=== PATIENT | female | born 1965 | race Caucasian/White ===

== ENCOUNTER 2017-11-15 20:42 | Inpatient (IN) | payer BC, MEDICAID ==
[2017-11-15] MEDS: ACETAMINOPHEN 325 MG TAB PO (21:49)
[2017-11-15] MEDS: SODIUM CHLORIDE 0.9% 1L BAG IV* (21:50)
[2017-11-15] MEDS: CEFTRIAXONE 1 GM/50 ML (PMX) 50 ML IVPB (21:50)
[2017-11-15 22:14] LABS: ADD MAN DIFF? NO
[2017-11-15 22:23] LABS: ABNORMAL IP MESSAGE 1; BASOPHILS % 0.2 % (0.0-2.0); HEMATOCRIT 30.6 % (37.0-47.0); HEMOGLOBIN 10.5 g/dl (12.0-16.0); LYMPHOCYTES # 0.2 10^3/ul (0.8-2.9); LYMPHOCYTES % 3.1 % (15.0-51.0); MEAN CORPUSCULAR HEMOGLOBIN 32.9 pg (29.0-33.0); MEAN CORPUSCULAR HGB CONC 34.3 g/dl (32.0-37.0); MEAN CORPUSCULAR VOLUME 95.9 fl (82.0-101.0); MEAN PLATELET VOLUME 8.7 fl (7.4-10.4); MONOCYTE # 0.1 10^3/ul (0.3-0.9); NEUTROPHIL # 5.6 10^3/ul (1.6-7.5); NEUTROPHILS % 95.5 % (39.0-77.0); PLATELET COUNT 147 10^3/UL (140-415); RED BLOOD COUNT 3.19 10^6/ul (4.20-5.40); RED CELL DISTRIBUTION WIDTH 12.4 % (11.5-14.5)
[2017-11-15 22:23] LABS: WHITE BLOOD COUNT 5.9 10^3/ul (4.8-10.8)
[2017-11-15 22:43] LABS: INR 1.01; PARTIAL THROMBOPLASTIN TIME 24.4 Sec (25.0-35.0); PROTIME 13.4 Sec (11.9-14.9)
[2017-11-15 22:44] LABS: ALANINE AMINOTRANSFERASE 152 IU/L (13-69); ALBUMIN 3.7 g/dl (3.3-4.9); ALBUMIN/GLOBULIN RATIO 1.42; ALKALINE PHOSPHATASE 45 IU/L (42-121); ANION GAP 14 (8-16); ASPARTATE AMINO TRANSFERASE 150 IU/L (15-46); BILIRUBIN,INDIRECT 0.7 mg/dl (0-1.1); BILIRUBIN,TOTAL 0.7 mg/dl (0.2-1.3); BLOOD UREA NITROGEN 14 mg/dl (7-20); CALCIUM 9.3 mg/dl (8.4-10.2); CARBON DIOXIDE 26 mmol/L (21-31); CHLORIDE 99 mmol/L (97-110); CREATININE 0.77 mg/dl (0.44-1.00); GLUCOSE 102 mg/dl (70-220); LIPASE 19 U/L (23-300); POTASSIUM 3.7 mmol/L (3.5-5.1); SODIUM 135 mmol/L (135-144); TOTAL PROTEIN 6.3 g/dl (6.1-8.1)
[2017-11-15 22:46] LABS: LACTIC ACID 2.2 mmol/L (0.5-2.0)
[2017-11-15 22:48] LABS: POSITIVE DIFF @See below
[2017-11-15 22:54] LABS: TROPONIN-I < 0.010 ng/ml (0.000-0.120)
[2017-11-15 23:15] LABS: ADD UMIC YES; UR ASCORBIC ACID NEGATIVE (NEGATIVE); UR BILIRUBIN (Dip) NEGATIVE (NEGATIVE); UR BLOOD (Dip) 2+ mg/dL (NEGATIVE); UR CLARITY CLEAR (CLEAR); UR COLOR STRAW (YELLOW); UR GLUCOSE (Dip) NEGATIVE (NEGATIVE); UR KETONES (Dip) NEGATIVE (NEGATIVE); UR LEUKOCYTE ESTERASE (Dip) NEGATIVE Leu/ul (NEGATIVE); UR NITRITE (Dip) NEGATIVE (NEGATIVE); UR RBC 0 /HPF (0-5); UR SPECIFIC GRAVITY (Dip) 1.012 (1.003-1.030); UR TOTAL PROTEIN (Dip) NEGATIVE (NEGATIVE); UR UROBILINOGEN (Dip) NEGATIVE (NEGATIVE); UR WBC 0 /HPF (0-5)
[2017-11-15 23:52] LABS: LACTIC ACID 1.1 mmol/L (0.5-2.0)
[2017-11-15] MEDS: HYDROCODONE/APAP (10/325) TAB PO (23:59)
[2017-11-16 03:17] LABS: ADD MAN DIFF? NO
[2017-11-16 03:20] LABS: ABNORMAL IP MESSAGE 1; HEMATOCRIT 30.7 % (37.0-47.0); HEMOGLOBIN 10.2 g/dl (12.0-16.0); LYMPHOCYTES # 0.2 10^3/ul (0.8-2.9); LYMPHOCYTES % 8.4 % (15.0-51.0); MEAN CORPUSCULAR HEMOGLOBIN 32.3 pg (29.0-33.0); MEAN CORPUSCULAR HGB CONC 33.2 g/dl (32.0-37.0); MEAN CORPUSCULAR VOLUME 97.2 fl (82.0-101.0); MEAN PLATELET VOLUME 8.7 fl (7.4-10.4); MONOCYTES % 0.4 % (0.0-11.0); NEUTROPHIL # 2.2 10^3/ul (1.6-7.5); NEUTROPHILS % 90.8 % (39.0-77.0); PLATELET COUNT 127 10^3/UL (140-415); RED BLOOD COUNT 3.16 10^6/ul (4.20-5.40); RED CELL DISTRIBUTION WIDTH 12.3 % (11.5-14.5)
[2017-11-16 03:20] LABS: WHITE BLOOD COUNT 2.4 10^3/ul (4.8-10.8)
[2017-11-16 03:41] LABS: POSITIVE DIFF @See below
[2017-11-16 03:44] LABS: LACTIC ACID 1.7 mmol/L (0.5-2.0)
[2017-11-16 03:48] LABS: ALANINE AMINOTRANSFERASE 483 IU/L (13-69); ALBUMIN 3.2 g/dl (3.3-4.9); ALBUMIN/GLOBULIN RATIO 1.28; ALKALINE PHOSPHATASE 61 IU/L (42-121); ANION GAP 11 (8-16); ASPARTATE AMINO TRANSFERASE 591 IU/L (15-46); BILIRUBIN,INDIRECT 0.5 mg/dl (0-1.1); BILIRUBIN,TOTAL 0.5 mg/dl (0.2-1.3); BLOOD UREA NITROGEN 10 mg/dl (7-20); CARBON DIOXIDE 24 mmol/L (21-31); CHLORIDE 109 mmol/L (97-110); GLUCOSE 101 mg/dl (70-220); POTASSIUM 3.6 mmol/L (3.5-5.1); SODIUM 140 mmol/L (135-144); TOTAL PROTEIN 5.7 g/dl (6.1-8.1)
[2017-11-16] MEDS: HYDROCODONE/APAP (10/325) TAB PO ×2 (08:12→14:54)
[2017-11-16] MEDS: CHOLECALCIFEROL 1,000 UNIT TAB PO (08:12)
[2017-11-16] MEDS: ONDANSETRON 4 MG INJ IV ×2 (08:12→14:54)
[2017-11-16] MEDS: CEFEPIME 1GM/50 ML (PMX) 50 ML IVPB ×2 (08:13→20:53)
[2017-11-16] MEDS: 1/2 NS + KCL 20 MEQ 1,000 ML IV ×2 (13:24)
[2017-11-16] MEDS: ATORVASTATIN 20 MG TAB PO (20:50)
[2017-11-16] MEDS ORDERED: NON-FORMULARY/PATIENT OWN MED (Simvastatin* (Zocor*) 40 MG) PO (21:00)
[2017-11-17] MEDS: ACETAMINOPHEN 500 MG TAB PO ×2 (03:07→21:05)
[2017-11-17] MEDS: 1/2 NS + KCL 20 MEQ 1,000 ML IV ×2 (04:56→18:05)
[2017-11-17] MEDS: HYDROCODONE/APAP (10/325) TAB PO (04:59)
[2017-11-17 05:18] LABS: ADD MAN DIFF? NO; HAAIG REFLEX REFLEX FILED
[2017-11-17 05:32] LABS: ABNORMAL IP MESSAGE 1; BASOPHILS % 0.5 % (0.0-2.0); EOSINOPHILS % 0.5 % (0.0-7.0); HEMATOCRIT 29.4 % (37.0-47.0); LYMPHOCYTES # 0.2 10^3/ul (0.8-2.9); LYMPHOCYTES % 3.9 % (15.0-51.0); MEAN CORPUSCULAR HEMOGLOBIN 32.1 pg (29.0-33.0); MEAN CORPUSCULAR VOLUME 94.2 fl (82.0-101.0); MEAN PLATELET VOLUME 8.8 fl (7.4-10.4); MONOCYTES % 0.2 % (0.0-11.0); NEUTROPHIL # 5.6 10^3/ul (1.6-7.5); NEUTROPHILS % 94.2 % (39.0-77.0); PLATELET COUNT 115 10^3/UL (140-415); RED BLOOD COUNT 3.12 10^6/ul (4.20-5.40); RED CELL DISTRIBUTION WIDTH 12.4 % (11.5-14.5)
[2017-11-17 06:00] LABS: POSITIVE DIFF @See below
[2017-11-17 06:24] LABS: ANION GAP 12 (8-16); BLOOD UREA NITROGEN 10 mg/dl (7-20); CALCIUM 8.3 mg/dl (8.4-10.2); CARBON DIOXIDE 22 mmol/L (21-31); CHLORIDE 104 mmol/L (97-110); CREATININE 0.76 mg/dl (0.44-1.00); GLUCOSE 86 mg/dl (70-220); POTASSIUM 3.7 mmol/L (3.5-5.1); SODIUM 134 mmol/L (135-144)
[2017-11-17 06:40] LABS: HEPATITIS B SURFACE ANTIGEN NEGATIVE (NEGATIVE)
[2017-11-17 07:00] LABS: HEPATITIS B CORE ANTIBODY NEGATIVE (NEGATIVE); HEPATITIS C VIRAL ANTIBODY NEGATIVE (NEGATIVE)
[2017-11-17] MEDS: CEFEPIME 1GM/50 ML (PMX) 50 ML IVPB ×2 (09:22→21:05)
[2017-11-17] MEDS: CHOLECALCIFEROL 1,000 UNIT TAB PO (09:22)
[2017-11-17] MEDS: ATORVASTATIN 20 MG TAB PO (21:05)
[2017-11-17] MEDS ORDERED: VANCOMYCIN IV PER PHARMACY XX (23:30)
[2017-11-18] MEDS: VANCOMYCIN 1.25 GM in SOD CHLORIDE 0.9% 250 ML IVPB (01:09)
[2017-11-18] MEDS: ACETAMINOPHEN 500 MG TAB PO (03:06)
[2017-11-18] MEDS: 1/2 NS + KCL 20 MEQ 1,000 ML IV ×2 (05:20→19:12)
[2017-11-18] MEDS: CEFEPIME 1GM/50 ML (PMX) 50 ML IVPB ×2 (10:10→21:17)
[2017-11-18] MEDS: CHOLECALCIFEROL 1,000 UNIT TAB PO (10:10)
[2017-11-18] MEDS: HYDROCODONE/APAP (10/325) TAB PO ×2 (10:27→19:05)
[2017-11-18] MEDS: VANCOMYCIN 750 MG in SOD CHLORIDE 0.9% 150 ML IVPB ×2 (13:00→16:21)
[2017-11-18 19:01] LABS: MONOTEST Negative (NEG)
[2017-11-18] MEDS: ATORVASTATIN 20 MG TAB PO (21:17)
[2017-11-19] MEDS: DIPHENHYDRAMINE 25 MG CAP PO ×2 (01:32→13:36)
[2017-11-19] MEDS ORDERED: VANCOMYCIN 750 MG in SOD CHLORIDE 0.9% 150 ML IVPB (04:00)
[2017-11-19 05:32] LABS: ABNORMAL IP MESSAGE 1; ADD MAN DIFF? NO; HEMATOCRIT 29.6 % (37.0-47.0); HEMOGLOBIN 10.3 g/dl (12.0-16.0); MEAN CORPUSCULAR HEMOGLOBIN 32.4 pg (29.0-33.0); MEAN CORPUSCULAR HGB CONC 34.8 g/dl (32.0-37.0); MEAN CORPUSCULAR VOLUME 93.1 fl (82.0-101.0); MEAN PLATELET VOLUME 9.3 fl (7.4-10.4); PLATELET COUNT 88 10^3/UL (140-415); RED BLOOD COUNT 3.18 10^6/ul (4.20-5.40); RED CELL DISTRIBUTION WIDTH 12.2 % (11.5-14.5)
[2017-11-19 05:32] LABS: WHITE BLOOD COUNT 1.3 10^3/ul (4.8-10.8)
[2017-11-19 05:34] LABS: POSITIVE DIFF @See below
[2017-11-19 05:48] LABS: ANION GAP 14 (8-16); BLOOD UREA NITROGEN 12 mg/dl (7-20); CARBON DIOXIDE 21 mmol/L (21-31); CHLORIDE 103 mmol/L (97-110); GLUCOSE 113 mg/dl (70-220); POTASSIUM 3.4 mmol/L (3.5-5.1); SODIUM 135 mmol/L (135-144)
[2017-11-19 07:31] LABS: BAND NEUTROPHILS #M 0.1 10^3/ul (0.0-0.6); BAND NEUTROPHILS % (M) 12 % (0-4); BASOPHILS % (M) 1 % (0-2); EOSINOPHILS % (M) 4 % (0-7); GIANT THROMBO% (M) 1 % (0-0); LYMPHOCYTES % (M) 6 % (15-51); MONOCYTES % (M) 1 % (0-11); PLATELET ESTIMATE DECREASED; SEGMENTED NEUTROPHILS (M) % 76 % (39-77); SMUDGE%M 6 % (0-0)
[2017-11-19] MEDS: 1/2 NS + KCL 20 MEQ 1,000 ML IV ×2 (08:00→09:05)
[2017-11-19] MEDS: ACETAMINOPHEN 500 MG TAB PO ×2 (08:47→17:05)
[2017-11-19] MEDS: CHOLECALCIFEROL 1,000 UNIT TAB PO (08:47)
[2017-11-19] MEDS: LORATADINE 10 MG TAB PO (08:47)
[2017-11-19 12:02] LABS: CYTOMEGALOVIRUS ANTIBODY (IGG) <0.60 U/mL; CYTOMEGALOVIRUS ANTIBODY (IGM) <30.00 AU/mL
[2017-11-19] MEDS: DAPTOMYCIN 250 MG in SOD CHLORIDE 0.9% 100 ML IVPB (14:55)
[2017-11-19 15:20] LABS: LACTIC ACID 2.1 mmol/L (0.5-2.0)
[2017-11-19 15:22] LABS: CREATINE KINASE 128 IU/L (23-200)
[2017-11-19] MEDS: CASPOFUNGIN 70 MG in SOD CHLORIDE 0.9% 250 ML IVPB (15:39)
[2017-11-19 16:20] LABS: ADD UMIC YES; UR ASCORBIC ACID NEGATIVE (NEGATIVE); UR BACTERIA FEW /HPF (NONE SEEN); UR BILIRUBIN (Dip) NEGATIVE (NEGATIVE); UR BLOOD (Dip) 2+ mg/dL (NEGATIVE); UR CLARITY CLEAR (CLEAR); UR COLOR YELLOW (YELLOW); UR GLUCOSE (Dip) NEGATIVE (NEGATIVE); UR KETONES (Dip) NEGATIVE (NEGATIVE); UR LEUKOCYTE ESTERASE (Dip) NEGATIVE Leu/ul (NEGATIVE); UR NITRITE (Dip) NEGATIVE (NEGATIVE); UR RBC 3 /HPF (0-5); UR SPECIFIC GRAVITY (Dip) 1.005 (1.003-1.030); UR TOTAL PROTEIN (Dip) 2+ mg/dl (NEGATIVE); UR UROBILINOGEN (Dip) NEGATIVE (NEGATIVE); UR WBC 3 /HPF (0-5)
[2017-11-19] MEDS: AZTREONAM 2 GM in SOD CHLORIDE 0.9% 100 ML IVPB ×2 (17:21→22:36)
[2017-11-19 19:40] LABS: LACTIC ACID 3.9 mmol/L (0.5-2.0)
[2017-11-19 20:15] LABS: EBV NUCLEAR AG (EBNA) AB (IGG) >600.00 U/mL; EBV VIRAL CAPSID AG AB (IGM) <36.00 U/mL
[2017-11-19] MEDS: ATORVASTATIN 20 MG TAB PO (20:23)
[2017-11-19] MEDS ORDERED: AZTREONAM 2 GM in SOD CHLORIDE 0.9% 100 ML IVPB (21:00)
[2017-11-20] MEDS: metroNIDAZOLE 500 MG/NS (PMX) 100 ML IVPB ×4 (00:30→22:24)
[2017-11-20] MEDS: ACETAMINOPHEN 500 MG TAB PO ×2 (05:10→11:29)
[2017-11-20] MEDS: AZTREONAM 2 GM in SOD CHLORIDE 0.9% 100 ML IVPB ×2 (06:05→13:38)
[2017-11-20 07:24] LABS: ADD MAN DIFF? NO
[2017-11-20 07:27] LABS: ABNORMAL IP MESSAGE 1; HEMATOCRIT 28.3 % (37.0-47.0); HEMOGLOBIN 9.8 g/dl (12.0-16.0); LYMPHOCYTES # 0.2 10^3/ul (0.8-2.9); LYMPHOCYTES % 5.8 % (15.0-51.0); MEAN CORPUSCULAR HEMOGLOBIN 31.6 pg (29.0-33.0); MEAN CORPUSCULAR HGB CONC 34.6 g/dl (32.0-37.0); MEAN CORPUSCULAR VOLUME 91.3 fl (82.0-101.0); MEAN PLATELET VOLUME 9.2 fl (7.4-10.4); MONOCYTE # 0.1 10^3/ul (0.3-0.9); MONOCYTES % 4.2 % (0.0-11.0); NEUTROPHIL # 2.8 10^3/ul (1.6-7.5); RED CELL DISTRIBUTION WIDTH 12.5 % (11.5-14.5)
[2017-11-20 07:27] LABS: WHITE BLOOD COUNT 3.1 10^3/ul (4.8-10.8)
[2017-11-20 07:39] LABS: POSITIVE DIFF @See below
[2017-11-20 07:40] LABS: PLATELET COUNT 55 10^3/UL (140-415)
[2017-11-20 08:15] LABS: ALANINE AMINOTRANSFERASE 226 IU/L (13-69); ALBUMIN 3.2 g/dl (3.3-4.9); ALKALINE PHOSPHATASE 488 IU/L (42-121); ANION GAP 13 (8-16); ASPARTATE AMINO TRANSFERASE 281 IU/L (15-46); BILIRUBIN,INDIRECT 1.1 mg/dl (0-1.1); BILIRUBIN,TOTAL 3.6 mg/dl (0.2-1.3); BLOOD UREA NITROGEN 12 mg/dl (7-20); CALCIUM 8.7 mg/dl (8.4-10.2); CARBON DIOXIDE 21 mmol/L (21-31); CHLORIDE 102 mmol/L (97-110); CREATININE 1.61 mg/dl (0.44-1.00); GLUCOSE 105 mg/dl (70-220); SODIUM 133 mmol/L (135-144); TOTAL PROTEIN 6.4 g/dl (6.1-8.1)
[2017-11-20 08:19] LABS: POTASSIUM 2.8 mmol/L (3.5-5.1)
[2017-11-20] MEDS: POTASSIUM CHLORIDE 50 ML IVPB ×3 (09:00→11:23)
[2017-11-20] MEDS: POTASSIUM CHLORIDE (SR) 10 MEQ TAB PO (09:17)
[2017-11-20] MEDS: LORATADINE 10 MG TAB PO (09:17)
[2017-11-20] MEDS: POTASSIUM CHLORIDE 20 MEQ POWDER FOR ORAL SOLN PO (09:18)
[2017-11-20] MEDS: CHOLECALCIFEROL 1,000 UNIT TAB PO (09:18)
[2017-11-20] MEDS: 1/2 NS + KCL 20 MEQ 1,000 ML IV (10:33)
[2017-11-20] MEDS: HYDROCODONE/APAP (10/325) TAB PO (12:10)
[2017-11-20] MEDS ORDERED: CASPOFUNGIN 50 MG in SOD CHLORIDE 0.9% 250 ML IVPB (14:00)
[2017-11-20] MEDS: DAPTOMYCIN 250 MG in SOD CHLORIDE 0.9% 100 ML IVPB (14:31)
[2017-11-20] MEDS: CASPOFUNGIN 50 MG in SOD CHLORIDE 0.9% 250 ML IVPB (15:44)
[2017-11-20 16:30] LABS: WEST NILE VIRUS ANTIBODY (IGG) <1.30 index; WEST NILE VIRUS ANTIBODY (IGM) <0.90 index
[2017-11-20] MEDS ORDERED: AZTREONAM IVPB (17:43)
[2017-11-20] MEDS ORDERED: SOD CHLORIDE 0.9% IVPB (17:43)
[2017-11-20] MEDS: RANITIDINE 150 MG TAB PO (21:41)
[2017-11-20] MEDS: ATORVASTATIN 20 MG TAB PO (21:41)
[2017-11-20] MEDS: AZTREONAM IVPB (21:43)
[2017-11-20] MEDS: SOD CHLORIDE 0.9% IVPB (21:43)
[2017-11-21] MEDS: DIPHENHYDRAMINE 25 MG CAP PO ×2 (00:32→23:02)
[2017-11-21] MEDS: 1/2 NS + KCL 20 MEQ 1,000 ML IV ×3 (03:01→22:44)
[2017-11-21] MEDS: metroNIDAZOLE 500 MG/NS (PMX) 100 ML IVPB ×3 (05:19→21:21)
[2017-11-21] MEDS: ACETAMINOPHEN 500 MG TAB PO ×2 (05:42→17:53)
[2017-11-21 07:36] LABS: WHITE BLOOD COUNT 4.9 10^3/ul (4.8-10.8)
[2017-11-21 07:36] LABS: ABNORMAL IP MESSAGE 1; HEMATOCRIT 27.2 % (37.0-47.0); HEMOGLOBIN 9.3 g/dl (12.0-16.0); MEAN CORPUSCULAR HEMOGLOBIN 31.5 pg (29.0-33.0); MEAN CORPUSCULAR HGB CONC 34.2 g/dl (32.0-37.0); MEAN CORPUSCULAR VOLUME 92.2 fl (82.0-101.0); MEAN PLATELET VOLUME 9.6 fl (7.4-10.4); RED BLOOD COUNT 2.95 10^6/ul (4.20-5.40); RED CELL DISTRIBUTION WIDTH 12.6 % (11.5-14.5)
[2017-11-21 07:38] LABS: POSITIVE DIFF @See below
[2017-11-21 07:40] LABS: ADD MAN DIFF? YES; PLATELET COUNT 26 10^3/UL (140-415)
[2017-11-21 07:56] LABS: ALANINE AMINOTRANSFERASE 327 IU/L (13-69); ALBUMIN 3.2 g/dl (3.3-4.9); ALKALINE PHOSPHATASE 486 IU/L (42-121); ANION GAP 18 (8-16); ASPARTATE AMINO TRANSFERASE 509 IU/L (15-46); BILIRUBIN,INDIRECT 0.7 mg/dl (0-1.1); BILIRUBIN,TOTAL 3.4 mg/dl (0.2-1.3); BLOOD UREA NITROGEN 19 mg/dl (7-20); CALCIUM 8.3 mg/dl (8.4-10.2); CARBON DIOXIDE 15 mmol/L (21-31); CHLORIDE 107 mmol/L (97-110); CREATININE 2.22 mg/dl (0.44-1.00); GLUCOSE 142 mg/dl (70-220); POTASSIUM 3.6 mmol/L (3.5-5.1); SODIUM 136 mmol/L (135-144); TOTAL PROTEIN 6.1 g/dl (6.1-8.1)
[2017-11-21] MEDS: LORATADINE 10 MG TAB PO (08:27)
[2017-11-21] MEDS: RANITIDINE 150 MG TAB PO ×2 (08:27→20:59)
[2017-11-21] MEDS: CHOLECALCIFEROL 1,000 UNIT TAB PO (08:27)
[2017-11-21] MEDS: POTASSIUM CHLORIDE 20 MEQ POWDER FOR ORAL SOLN PO (08:28)
[2017-11-21] MEDS: AZTREONAM IVPB (08:29)
[2017-11-21] MEDS: SOD CHLORIDE 0.9% IVPB (08:29)
[2017-11-21 09:04] LABS: BAND NEUTROPHILS #M 0.2 10^3/ul (0.0-0.6); BAND NEUTROPHILS % (M) 5 % (0-4); BASOPHILS % (M) 2 % (0-2); BURR CELLS 1+ (0-0); GIANT THROMBO% (M) 1 % (0-0); LYMPHOCYTES % (M) 2 % (15-51); MONOCYTE #M 0.2 10^3/ul (0.3-0.9); MONOCYTES % (M) 5 % (0-11); PLATELET ESTIMATE SIG DECREASED; SEG NEUT #M 4.2 10^3/ul (1.6-7.5); SEGMENTED NEUTROPHILS (M) % 86 % (39-77); SMUDGE%M 4 % (0-0)
[2017-11-21 09:35] LABS: MAGNESIUM 1.3 mg/dl (1.7-2.5)
[2017-11-21 12:49] LABS: HAAIG REFLEX REFLEX FILED
[2017-11-21 14:01] LABS: HEPATITIS B SURFACE ANTIGEN NEGATIVE (NEGATIVE)
[2017-11-21 14:19] LABS: HEPATITIS B CORE ANTIBODY NEGATIVE (NEGATIVE); HEPATITIS C VIRAL ANTIBODY NEGATIVE (NEGATIVE)
[2017-11-21] MEDS: MAGNESIUM SULFATE 2 GM/50 ML 50 ML IVPB (14:35)
[2017-11-21] MEDS: ATORVASTATIN 20 MG TAB PO (20:59)
[2017-11-21] MEDS: AZTREONAM 1 GM/NS (PMX) 50 ML IVPB (22:44)
[2017-11-22] MEDS: metroNIDAZOLE 500 MG/NS (PMX) 100 ML IVPB ×3 (05:49→22:00)
[2017-11-22] MEDS: AZTREONAM 1 GM/NS (PMX) 50 ML IVPB ×3 (06:32→21:01)
[2017-11-22 06:45] LABS: ADD MAN DIFF? NO
[2017-11-22 06:52] LABS: ABNORMAL IP MESSAGE 1; HEMATOCRIT 27.5 % (37.0-47.0); HEMOGLOBIN 9.4 g/dl (12.0-16.0); MEAN CORPUSCULAR HEMOGLOBIN 31.8 pg (29.0-33.0); MEAN CORPUSCULAR HGB CONC 34.2 g/dl (32.0-37.0); MEAN CORPUSCULAR VOLUME 92.9 fl (82.0-101.0); MEAN PLATELET VOLUME 11.4 fl (7.4-10.4); PLATELET COUNT 37 10^3/UL (140-415); RED BLOOD COUNT 2.96 10^6/ul (4.20-5.40)
[2017-11-22 06:52] LABS: WHITE BLOOD COUNT 5.4 10^3/ul (4.8-10.8)
[2017-11-22 06:59] LABS: POSITIVE DIFF @See below
[2017-11-22 07:13] LABS: ANION GAP 16 (8-16); BLOOD UREA NITROGEN 22 mg/dl (7-20); CALCIUM 8.5 mg/dl (8.4-10.2); CARBON DIOXIDE 16 mmol/L (21-31); CHLORIDE 110 mmol/L (97-110); CREATININE 2.86 mg/dl (0.44-1.00); GLUCOSE 116 mg/dl (70-220); SODIUM 138 mmol/L (135-144)
[2017-11-22 07:52] LABS: ANISOCYTOSIS 1+ (0-0); BAND NEUTROPHILS #M 0.7 10^3/ul (0.0-0.6); BAND NEUTROPHILS % (M) 14 % (0-4); EOSINOPHILS % (M) 2 % (0-7); LYMPHOCYTES #M 0.3 10^3/ul (0.8-2.9); LYMPHOCYTES % (M) 7 % (15-51); MONOCYTE #M 0.2 10^3/ul (0.3-0.9); MONOCYTES % (M) 4 % (0-11); PLATELET ESTIMATE SIG DECREASED; POIKILOCYTOSIS 2+ (0-0); SEGMENTED NEUTROPHILS (M) % 73 % (39-77); SMUDGE%M 44 % (0-0)
[2017-11-22 08:19] LABS: ALANINE AMINOTRANSFERASE 292 IU/L (13-69); ALKALINE PHOSPHATASE 593 IU/L (42-121); ASPARTATE AMINO TRANSFERASE 421 IU/L (15-46); BILIRUBIN,INDIRECT 0.8 mg/dl (0-1.1); BILIRUBIN,TOTAL 3.1 mg/dl (0.2-1.3); TOTAL PROTEIN 6.1 g/dl (6.1-8.1)
[2017-11-22] MEDS: CHOLECALCIFEROL 1,000 UNIT TAB PO (08:19)
[2017-11-22] MEDS: POTASSIUM CHLORIDE 20 MEQ POWDER FOR ORAL SOLN PO (08:19)
[2017-11-22] MEDS: LORATADINE 10 MG TAB PO (08:19)
[2017-11-22] MEDS: RANITIDINE 150 MG TAB PO ×2 (08:19→21:01)
[2017-11-22] MEDS: HYDROCODONE/APAP (10/325) TAB PO (12:02)
[2017-11-22] MEDS: 1/2 NS + KCL 20 MEQ 1,000 ML IV (15:33)
[2017-11-22] MEDS: DAPTOMYCIN 250 MG in SOD CHLORIDE 0.9% 100 ML IVPB (16:10)
[2017-11-22 19:29] LABS: SODIUM,URINE RANDOM 41 mmol/L (30-90)
[2017-11-22 19:33] LABS: CREATININE,URINE RANDOM 22.55 mg/dl (20-320); PROTEIN/CREAT RATIO 8.33 RATIO
[2017-11-23] MEDS: 1/2 NS + KCL 20 MEQ 1,000 ML IV ×2 (05:24→22:39)
[2017-11-23] MEDS: ACETAMINOPHEN 500 MG TAB PO (05:24)
[2017-11-23] MEDS: AZTREONAM 1 GM/NS (PMX) 50 ML IVPB ×3 (05:25→21:35)
[2017-11-23] MEDS: metroNIDAZOLE 500 MG/NS (PMX) 100 ML IVPB ×3 (05:26→22:39)
[2017-11-23 07:04] LABS: URIC ACID 2.9 mg/dl (3.1-7.9)
[2017-11-23 07:04] LABS: CREATINE KINASE 58 IU/L (23-200)
[2017-11-23] MEDS: CHOLECALCIFEROL 1,000 UNIT TAB PO (09:01)
[2017-11-23] MEDS: LORATADINE 10 MG TAB PO (09:01)
[2017-11-23] MEDS: RANITIDINE 150 MG TAB PO ×2 (09:01→21:35)
[2017-11-23] MEDS: HYDROCODONE/APAP (10/325) TAB PO (19:03)
[2017-11-23] MEDS: CITRIC ACID/SODIUM CITRATE 15 ML CUP PO (21:35)
[2017-11-24] MEDS: AZTREONAM 1 GM/NS (PMX) 50 ML IVPB ×2 (05:48→14:44)
[2017-11-24 06:26] LABS: RETICULOCYTE RBC 2.83
[2017-11-24 06:26] LABS: RETICULOCYTE COUNT # 0.013 X10^6 (0.020-0.110); RETICULOCYTE COUNT % 0.5 % (0.5-1.5)
[2017-11-24 06:27] LABS: ABNORMAL IP MESSAGE 1; HEMATOCRIT 25.9 % (37.0-47.0); HEMOGLOBIN 8.9 g/dl (12.0-16.0); MEAN CORPUSCULAR HEMOGLOBIN 31.8 pg (29.0-33.0); MEAN CORPUSCULAR HGB CONC 34.4 g/dl (32.0-37.0); MEAN CORPUSCULAR VOLUME 92.5 fl (82.0-101.0); MEAN PLATELET VOLUME 9.8 fl (7.4-10.4); PLATELET COUNT 101 10^3/UL (140-415); RED CELL DISTRIBUTION WIDTH 13.2 % (11.5-14.5)
[2017-11-24 06:27] LABS: WHITE BLOOD COUNT 6.4 10^3/ul (4.8-10.8)
[2017-11-24 06:29] LABS: ADD MAN DIFF? YES; POSITIVE DIFF @See below
[2017-11-24] MEDS: metroNIDAZOLE 500 MG/NS (PMX) 100 ML IVPB ×3 (06:35→21:11)
[2017-11-24 06:40] LABS: ANION GAP 13 (8-16); BLOOD UREA NITROGEN 27 mg/dl (7-20); CALCIUM 8.7 mg/dl (8.4-10.2); CARBON DIOXIDE 13 mmol/L (21-31); CHLORIDE 114 mmol/L (97-110); CREATININE 3.42 mg/dl (0.44-1.00); GLUCOSE 112 mg/dl (70-220); SODIUM 137 mmol/L (135-144)
[2017-11-24 06:42] LABS: ALANINE AMINOTRANSFERASE 257 IU/L (13-69); ALBUMIN 2.7 g/dl (3.3-4.9); ALKALINE PHOSPHATASE 1042 IU/L (42-121); ASPARTATE AMINO TRANSFERASE 290 IU/L (15-46); BILIRUBIN,INDIRECT 0.4 mg/dl (0-1.1); BILIRUBIN,TOTAL 1.2 mg/dl (0.2-1.3); TOTAL PROTEIN 5.1 g/dl (6.1-8.1)
[2017-11-24 07:18] LABS: LACTATE DEHYDROGENASE 1414 IU/L (313-618)
[2017-11-24 07:20] LABS: BAND NEUTROPHILS #M 0.1 10^3/ul (0.0-0.6); BAND NEUTROPHILS % (M) 3 % (0-4); BURR CELLS 1+ (0-0); EOSINOPHILS % (M) 2 % (0-7); GIANT THROMBO% (M) 1 % (0-0); LYMPHOCYTES #M 0.7 10^3/ul (0.8-2.9); LYMPHOCYTES % (M) 12 % (15-51); MONOCYTE #M 0.4 10^3/ul (0.3-0.9); MONOCYTES % (M) 7 % (0-11); PLATELET ESTIMATE DECREASED; POIKILOCYTOSIS 1+ (0-0); SEG NEUT #M 4.9 10^3/ul (1.6-7.5); SEGMENTED NEUTROPHILS (M) % 76 % (39-77); SMUDGE%M 10 % (0-0)
[2017-11-24] MEDS: 1/2 NS + KCL 20 MEQ 1,000 ML IV ×2 (08:00→16:39)
[2017-11-24] MEDS: CHOLECALCIFEROL 1,000 UNIT TAB PO (08:13)
[2017-11-24] MEDS: CITRIC ACID/SODIUM CITRATE 15 ML CUP PO ×3 (08:13→20:11)
[2017-11-24] MEDS: RANITIDINE 150 MG TAB PO ×2 (08:13→20:11)
[2017-11-24] MEDS: LORATADINE 10 MG TAB PO (08:13)
[2017-11-24] MEDS: POTASSIUM CHLORIDE (SR) 20 MEQ TAB PO (17:16)
[2017-11-24 19:21] LABS: AADO2 Arterial 35.1 mmHg (7.0-24.0); Allen Test ACCEPTAB; Arterial Base Excess -8.3 mmol/L (-3.0-3); Arterial Blood Gas Oxygen Sat 96.3 mmHG (95.0-98.0); Arterial COHb 0.3 % (0.0-3.0); Arterial MetHb 0 % (0.0-1.5); Arterial Total Hemglobin 9.6 g/dl (12.0-18.0); MODE ROOM AIR; Site Left Radial
[2017-11-24] MEDS: SODIUM BICARBONATE (IV ADD) 100 MEQ in DEXTROSE 5% 1,000 ML IV (20:11)
[2017-11-25] MEDS: ACETAMINOPHEN 500 MG TAB PO ×3 (00:34→20:24)
[2017-11-25] MEDS: metroNIDAZOLE 500 MG/NS (PMX) 100 ML IVPB (05:52)
[2017-11-25 06:12] LABS: ADD MAN DIFF? NO
[2017-11-25 06:17] LABS: ABNORMAL IP MESSAGE 1; BASOPHILS % 0.1 % (0.0-2.0); EOSINOPHILS # 0.2 10^3/ul (0.0-0.5); HEMATOCRIT 23.5 % (37.0-47.0); HEMOGLOBIN 8.1 g/dl (12.0-16.0); LYMPHOCYTES # 0.9 10^3/ul (0.8-2.9); LYMPHOCYTES % 12.6 % (15.0-51.0); MEAN CORPUSCULAR HEMOGLOBIN 31.6 pg (29.0-33.0); MEAN CORPUSCULAR HGB CONC 34.5 g/dl (32.0-37.0); MEAN CORPUSCULAR VOLUME 91.8 fl (82.0-101.0); MEAN PLATELET VOLUME 11.1 fl (7.4-10.4); MONOCYTE # 0.7 10^3/ul (0.3-0.9); MONOCYTES % 10.7 % (0.0-11.0); NEUTROPHIL # 4.9 10^3/ul (1.6-7.5); NEUTROPHILS % 70.4 % (39.0-77.0); PLATELET COUNT 81 10^3/UL (140-415); RED BLOOD COUNT 2.56 10^6/ul (4.20-5.40); RED CELL DISTRIBUTION WIDTH 13.3 % (11.5-14.5)
[2017-11-25 06:17] LABS: WHITE BLOOD COUNT 6.9 10^3/ul (4.8-10.8)
[2017-11-25 06:22] LABS: POSITIVE DIFF @See below
[2017-11-25 07:27] LABS: ANION GAP 13 (8-16); BLOOD UREA NITROGEN 26 mg/dl (7-20); CALCIUM 8.5 mg/dl (8.4-10.2); CARBON DIOXIDE 17 mmol/L (21-31); CHLORIDE 110 mmol/L (97-110); CREATININE 2.76 mg/dl (0.44-1.00); GLUCOSE 114 mg/dl (70-220); SODIUM 137 mmol/L (135-144)
[2017-11-25 07:30] LABS: POTASSIUM 2.9 mmol/L (3.5-5.1)
[2017-11-25 07:59] LABS: AADO2 Arterial 38.9 mmHg (7.0-24.0); Allen Test ACCEPTAB; Arterial Blood Gas Oxygen Sat 95.6 mmHG (95.0-98.0); Arterial COHb 0.1 % (0.0-3.0); Arterial Fraction of Oxyhgb 95.2 % (93.0-99.0); Arterial HCO3 18.5 mmol/L (22.0-26.0); Arterial MetHb 0.3 % (0.0-1.5); Arterial pCO2 28.4 mmhg (35-45); MODE ROOM AIR; Site Left Radial
[2017-11-25] MEDS ORDERED: POTASSIUM CHLORIDE (SR) 10 MEQ TAB PO (08:00)
[2017-11-25] MEDS: SODIUM BICARBONATE (IV ADD) 100 MEQ in DEXTROSE 5% 1,000 ML IV ×2 (08:06→15:30)
[2017-11-25] MEDS: CITRIC ACID/SODIUM CITRATE 15 ML CUP PO ×3 (08:18→20:24)
[2017-11-25] MEDS: LORATADINE 10 MG TAB PO (08:21)
[2017-11-25] MEDS: RANITIDINE 150 MG TAB PO ×2 (08:21→20:24)
[2017-11-25] MEDS: CHOLECALCIFEROL 1,000 UNIT TAB PO (08:23)
[2017-11-25] MEDS: POTASSIUM CHLORIDE (SR) 10 MEQ TAB PO ×2 (08:24→12:33)
[2017-11-25] MEDS: AZTREONAM 1 GM/NS (PMX) 50 ML IVPB (13:48)
[2017-11-25] MEDS: MAGNESIUM SULFATE 2 GM/50 ML 50 ML IVPB (17:18)
[2017-11-25] MEDS: D5W-0.45 NACL + KCL 20 MEQ 1,000 ML IV (20:15)
[2017-11-26] MEDS: D5W-0.45 NACL + KCL 20 MEQ 1,000 ML IV ×4 (04:00→20:20)
[2017-11-26] MEDS: RANITIDINE 150 MG TAB PO ×2 (07:57→20:11)
[2017-11-26] MEDS: CITRIC ACID/SODIUM CITRATE 15 ML CUP PO ×3 (07:57→20:11)
[2017-11-26] MEDS: CHOLECALCIFEROL 1,000 UNIT TAB PO (07:58)
[2017-11-26] MEDS: LORATADINE 10 MG TAB PO (07:58)
[2017-11-26 08:30] LABS: ADD MAN DIFF? NO
[2017-11-26 08:32] LABS: WHITE BLOOD COUNT 8.1 10^3/ul (4.8-10.8)
[2017-11-26 08:32] LABS: ABNORMAL IP MESSAGE 1; BASOPHILS % 0.1 % (0.0-2.0); EOSINOPHILS # 0.3 10^3/ul (0.0-0.5); EOSINOPHILS % 3.2 % (0.0-7.0); HEMATOCRIT 23.8 % (37.0-47.0); HEMOGLOBIN 8.7 g/dl (12.0-16.0); LYMPHOCYTES # 0.9 10^3/ul (0.8-2.9); LYMPHOCYTES % 11.5 % (15.0-51.0); MEAN CORPUSCULAR HEMOGLOBIN 32.3 pg (29.0-33.0); MEAN CORPUSCULAR HGB CONC 36.6 g/dl (32.0-37.0); MEAN CORPUSCULAR VOLUME 88.5 fl (82.0-101.0); MEAN PLATELET VOLUME 9.8 fl (7.4-10.4); MONOCYTE # 1.2 10^3/ul (0.3-0.9); MONOCYTES % 14.2 % (0.0-11.0); NEUTROPHIL # 5.3 10^3/ul (1.6-7.5); NEUTROPHILS % 64.8 % (39.0-77.0); NUCLEATED RED BLOOD CELLS% 0.2 /100WBC (0.0-0.0); PLATELET COUNT 146 10^3/UL (140-415); RED BLOOD COUNT 2.69 10^6/ul (4.20-5.40); RED CELL DISTRIBUTION WIDTH 13.3 % (11.5-14.5)
[2017-11-26 08:38] LABS: POSITIVE DIFF @See below
[2017-11-26 08:59] LABS: MAGNESIUM 2.4 mg/dl (1.7-2.5)
[2017-11-26 09:00] LABS: ALANINE AMINOTRANSFERASE 145 IU/L (13-69); ALBUMIN 2.8 g/dl (3.3-4.9); ALBUMIN/GLOBULIN RATIO 1.07; ALKALINE PHOSPHATASE 1011 IU/L (42-121); ANION GAP 12 (8-16); ASPARTATE AMINO TRANSFERASE 124 IU/L (15-46); BILIRUBIN,INDIRECT 0.5 mg/dl (0-1.1); BILIRUBIN,TOTAL 0.5 mg/dl (0.2-1.3); BLOOD UREA NITROGEN 19 mg/dl (7-20); CALCIUM 8.4 mg/dl (8.4-10.2); CARBON DIOXIDE 23 mmol/L (21-31); CHLORIDE 104 mmol/L (97-110); CREATININE 2.67 mg/dl (0.44-1.00); GLUCOSE 111 mg/dl (70-220); SODIUM 136 mmol/L (135-144); TOTAL PROTEIN 5.4 g/dl (6.1-8.1)
[2017-11-26 09:18] LABS: POTASSIUM 2.9 mmol/L (3.5-5.1)
[2017-11-26] MEDS: POTASSIUM CHLORIDE (SR) 20 MEQ TAB PO ×2 (10:11→13:23)
[2017-11-26 10:23] LABS: ANISOCYTOSIS 1+ (0-0); BAND NEUTROPHILS #M 0.5 10^3/ul (0.0-0.6); BAND NEUTROPHILS % (M) 7 % (0-4); EOSINOPHILS % (M) 1 % (0-7); GIANT THROMBO% (M) 1 % (0-0); HYPOCHROMASIA 1+ (0-0); LYMPHOCYTES #M 0.9 10^3/ul (0.8-2.9); LYMPHOCYTES % (M) 12 % (15-51); MONOCYTES % (M) 13 % (0-11); PLATELET ESTIMATE NORMAL; POLYCHROMASIA 3+ (0-0); SEG NEUT #M 5.5 10^3/ul (1.6-7.5); SEGMENTED NEUTROPHILS (M) % 67 % (39-77); SMUDGE%M 1 % (0-0)
[2017-11-26] MEDS: AZTREONAM 1 GM/NS (PMX) 50 ML IVPB (13:23)
[2017-11-26] MEDS: ACETAMINOPHEN 500 MG TAB PO (20:11)
[2017-11-27 06:43] LABS: ABNORMAL IP MESSAGE 1; HEMATOCRIT 22.6 % (37.0-47.0); HEMOGLOBIN 7.9 g/dl (12.0-16.0); MEAN CORPUSCULAR HEMOGLOBIN 31.1 pg (29.0-33.0); MEAN PLATELET VOLUME 9.5 fl (7.4-10.4); PLATELET COUNT 217 10^3/UL (140-415); RED BLOOD COUNT 2.54 10^6/ul (4.20-5.40); RED CELL DISTRIBUTION WIDTH 13.8 % (11.5-14.5)
[2017-11-27 06:43] LABS: WHITE BLOOD COUNT 7.9 10^3/ul (4.8-10.8)
[2017-11-27 06:51] LABS: POSITIVE DIFF @See below
[2017-11-27 06:52] LABS: ADD MAN DIFF? YES
[2017-11-27 07:31] LABS: ALANINE AMINOTRANSFERASE 117 IU/L (13-69); ALBUMIN 2.6 g/dl (3.3-4.9); ALBUMIN/GLOBULIN RATIO 0.92; ALKALINE PHOSPHATASE 999 IU/L (42-121); ANION GAP 12 (8-16); ASPARTATE AMINO TRANSFERASE 125 IU/L (15-46); BILIRUBIN,INDIRECT 0.5 mg/dl (0-1.1); BILIRUBIN,TOTAL 0.5 mg/dl (0.2-1.3); BLOOD UREA NITROGEN 16 mg/dl (7-20); CALCIUM 8.2 mg/dl (8.4-10.2); CARBON DIOXIDE 23 mmol/L (21-31); CHLORIDE 108 mmol/L (97-110); CREATININE 2.35 mg/dl (0.44-1.00); GLUCOSE 108 mg/dl (70-220); POTASSIUM 3.6 mmol/L (3.5-5.1); SODIUM 139 mmol/L (135-144); TOTAL PROTEIN 5.4 g/dl (6.1-8.1)
[2017-11-27 08:32] LABS: BAND NEUTROPHILS #M 0.8 10^3/ul (0.0-0.6); BAND NEUTROPHILS % (M) 11 % (0-4); EOSINOPHILS % (M) 5 % (0-7); ERYTHROBLAST% (NRBC) (M) 1 % (0-0); GIANT THROMBO% (M) 1 % (0-0); LYMPHOCYTES % (M) 13 % (15-51); METAMYELOCYTES %M 1 % (0-0); MONOCYTE #M 0.2 10^3/ul (0.3-0.9); MONOCYTES % (M) 3 % (0-11); MYELOCYTES #M 0.1 10^3/ul (0.0-0.0); MYELOCYTES % (M) 2 % (0-0); PLATELET ESTIMATE NORMAL; SEG NEUT #M 5.2 10^3/ul (1.6-7.5); SEGMENTED NEUTROPHILS (M) % 65 % (39-77); SMUDGE%M 34 % (0-0)
[2017-11-27] MEDS: CITRIC ACID/SODIUM CITRATE 15 ML CUP PO ×2 (09:17→13:00)
[2017-11-27] MEDS: LORATADINE 10 MG TAB PO (09:17)
[2017-11-27] MEDS: CHOLECALCIFEROL 1,000 UNIT TAB PO (09:17)
[2017-11-27] MEDS: RANITIDINE 150 MG TAB PO (09:17)
[2017-11-27] MEDS: POTASSIUM CHLORIDE (SR) 20 MEQ TAB PO (09:17)
[2017-11-27] MEDS: D5W-0.45 NACL + KCL 20 MEQ 1,000 ML IV (09:18)
[2017-11-27] MEDS: AZTREONAM 1 GM/NS (PMX) 50 ML IVPB (14:00)
[2017-11-29 14:37] LABS: ALANINE AMINOTRANSFERASE 175 IU/L (13-69); ALKALINE PHOSPHATASE 981 IU/L (42-121); ASPARTATE AMINO TRANSFERASE 190 IU/L (15-46)
[2017-11-29 14:38] LABS: BILIRUBIN,INDIRECT 0.4 mg/dl (0-1.1); BILIRUBIN,TOTAL 0.5 mg/dl (0.2-1.3); TOTAL PROTEIN 4.7 g/dl (6.1-8.1)
[2017-11-29 14:39] LABS: ALBUMIN 2.5 g/dl (3.3-4.9)
[2017-11-29 14:40] LABS: LACTATE DEHYDROGENASE 1152 IU/L (313-618)
== END 2017-11-27 15:00 | disposition home or self-care (01) | DRG 809 ==
LOC: MS3 23:28 → E/R 20:42 → TEL 11-19 21:35 → MS1 11-16 18:00
DX: D70.1 Agranulocytosis secondary to cancer chemotherapy (principal); C79.31 Secondary malignant neoplasm of brain; N13.30 Unspecified hydronephrosis; N17.9 Acute kidney failure, unspecified; R50.81 Fever presenting with conditions classified elsewhere; C50.919 Malignant neoplasm of unspecified site of unspecified female breast; F17.200 Nicotine dependence, unspecified, uncomplicated; Z92.3 Personal history of irradiation; R74.0 Nonspecific elevation of levels of transaminase and lactic acid dehydrogenase [LDH]; I51.7 Cardiomegaly; L27.0 Generalized skin eruption due to drugs and medicaments taken internally; T36.1X5A Adverse effect of cephalosporins and other beta-lactam antibiotics, initial encounter; Y92.239 Unspecified place in hospital as the place of occurrence of the external cause; K76.0 Fatty (change of) liver, not elsewhere classified; T45.1X5A Adverse effect of antineoplastic and immunosuppressive drugs, initial encounter; D69.59 Other secondary thrombocytopenia; E87.6 Hypokalemia
CPT/HCPCS: 36415; 36600; 71045; 74176; 76705; 76775; 80048; 80053; 80076; 81001; 81003; 82105; 82550; 82570; 82803; 83605; 83615; 83690; 83735; 84300; 84484; 84560; 85025; 85045; 85610; 85730; 86308; 86644; 86664; 86704; 86709; 86788; 86789; 86803; 87040; 87086; 87340; 89190; 93005; 93306; 96374; 99291-25